=== PATIENT | male | born 1990 | race Caucasian/White ===

== ENCOUNTER 2017-12-23 11:33 | Inpatient (IN) | payer SELFPAY ==
[~2017-12-23] VITALS: Ht 182.9 cm; Wt 84.2 kg
[2017-12-23] MEDS ORDERED: [UNRECOGNIZED DRUG - REMARK] OTHER SCH (17:00)
[2017-12-23 17:05] VITALS: BP 151/92; PULSE 82; RESP 18; TEMP 98.2; O2SAT 82
[2017-12-23] MEDS ORDERED: diphenhydrAMINE HCL 50 MG CAP - HS PRN PO (19:00)
[2017-12-23] MEDS ORDERED: diphenhydrAMINE HCL 50 MG/ML VIAL IM PRN (19:00)
[2017-12-23] MEDS ORDERED: MAGNESIUM HYDROXIDE SUSP 30 ML CUP PO PRN (19:00)
[2017-12-23] MEDS ORDERED: diphenhydrAMINE HCL 50 MG CAP PO PRN (19:00)
[2017-12-23] MEDS ORDERED: diphenhydrAMINE HCL 50 MG/ML VIAL - HS PRN IM (19:00)
[2017-12-23] MEDS ORDERED: hydrOXYzine HCL 50 MG TAB PO PRN (19:00)
[2017-12-23] MEDS ORDERED: ACETAMINOPHEN 325 MG TAB PO PRN (19:00)
[2017-12-23] MEDS ORDERED: ALUMINUM/MAGNESIUM/SIMETH 30 ML CUP PO PRN (19:00)
[2017-12-23] MEDS ORDERED: REMOVE OLD NICOTINE PATCH T-DERMAL SCH (21:00)
[2017-12-24 05:57] VITALS: BP 126/85; PULSE 77; RESP 17; TEMP 98.2; O2SAT 96
[2017-12-24] MEDS ORDERED: NICOTINE 21 MG/24 HR PATCH T-DERMAL SCH (09:00)
--- NOTE | 2017-12-24 12:19 | HHI.HP ---
Provisional Diagnosis Admission Date Dec 23, 2017 at 16:30 [place]. 1. Adjustment disorder with anxiety, resolved 2. Cannabis use [place] II. Deferred Certification of Person's Competence To Provide Express and Informed Consent I have personally examined Jaxson Farmer , a person being served at [facility] on, Dec 24, 2017 12:19. Express and informed consent means consent voluntarily given in writing, by a competent person, after sufficient explanation and disclosure of the subject matter involved to enable the person to make a knowing and willful decision without any element of force, fraud, deceit, duress, or other form of constraint or coercion. This person is 18 years of age or older, is not now known to be incompetent to consent to treatment with a guardian advocate, and does not have a health care surrogate or proxy currently making medical treatment decisions. I have found this person to be one of the following: [x] Competent to provide express and informed consent, as defined above, for voluntary admission to this facility and is competent to provide express and informed consent for treatment. He/she has the consistent capacity to make well reasoned, willful, and knowing decisions concerning his or her medical or mental health treatment. The person fully and consistently understands the purpose of the admission for examination/placement and is fully capable of personally exercising all rights [place] Incompetent to provide express and informed consent to voluntary admission, and this is incompetent to provide express and informed consent to treatment. The person must be transferred to involuntary status and a petition for a guardian advocate filed with the Circuit Court. [] Refusing to provide express and informed consent to voluntary admission but is competent to provide express and informed consent for treatment. The person must be discharged or transferred to involuntary status. Form shall be completed within 24 hours of a person's arrival at the receiving facility and filed in the clinical record of each person: 1. Admitted on a voluntary basis 2. Permitted to provide express and informed consent to his/her own treatment 3. Allowed to transfer from involuntary to voluntary status 4. Prior to permitting a person to consent to his or her own treatment after having been previously found incompetent to consent to treatment. History of Present Illness Capacity: Has Capacity Psych Chief Complaint: "It was just a bad day." HPI Mr. Farmer is a 27 year-old male with a reported history of depression and anxiety who presents in transfer from [facility] under a Telles Act. Documentation from outside hospital reviewed. Patient presented to outside hospital complaining of anxiety and depression in the setting of divorce. He was placed under the Telles act at outside hospital and sent to [facility]. Reviewing our electronic medical record, it appears this is patient's first visit to [facility]. Patient seen and examined with nurse. Chart reviewed. Case discussed with nursing staff. Per nurse, patient's behavior on the inpatient unit has been euthymic with no evidence of any suicidality or homicidality. The patient is noted to interact appropriately with peers. On my examination today, the patient insists that he was just having a bad day. He had recently discovered that his , from whom he is , was in a relationship with another man and "I just needed someone to talk to." He denies that he was suicidal at any point and denies any suicidal or homicidal ideation, intent or plan now and contracts for safety. He says that he wants to live for his dog, his friends and his family. He says that he was just acutely distressed and anxious because of the information he had learned about his , but now he feels much better and would like to be discharged from the hospital. I can elicit no depressive or hypomanic/manic symptoms. He denies any audiovisual hallucinations. I can elicit no delusional material. There is no evidence of impairment in reality construction. The remainder of the psychiatric ROS is negative. The patient has no acute physical complaints. With the patient's permission, I have obtained collateral information from his mother Sandy Shah at [phone]. Mother has absolutely no concerns about the patient being a risk of harm to himself or others. She is comfortable with the patient being discharged home today. Regarding the decision to Telles act the patient, Ms. Shah says "it was silly. He is perfectly fine." Mother is aware of patient's child psychiatric history but notes that he has had no issues in adulthood. Past psychiatric history: Patient reports that he has a history of depression and anxiety but has managed off of medications without issue for over 4 years. He is not under the care of a psychiatrist. He reports that he was psychiatrically admitted as a child and had one overdose as a child but denies any psychiatric admissions or suicide attempts in adulthood. Family history: Patient denies a family history of serious mental illness or suicide. Chemical dependency history: Patient admits to occasional use of cannabis. He drinks the occasional beer. He denies any other substance use. Social history: The patient relates that he has an extensive support system of family and friends. He is in the process of his of 5 years. He notes that the relationship has always been toxic but that the decision to separate is relatively recent. He has no children. He was attending law school but is presently working at [employer]. He denies any history. Denies any legal history. Denies any access to guns or firearms. No particular zoroastrian or spiritual beliefs. He denies any history of trauma. Review of Systems Except as stated in HPI: all other systems reviewed are Neg Past Family Social History Coded Allergies: No Known Allergies (Verified Allergy, Unknown, 12/23/17) Past Medical History Patient denies any past medical history Current Medications Medications (Trade) Dose Ordered Sig/Binh Route Start Time Stop Time Status Last Admin ([facility] Nursing Information) ENTER PATIENT'S HT/WT ... Q30M OTHER 12/23/17 17:00 (Atarax) 50 mg Q6H PRN PO 12/23/17 19:00 (Benadryl) 50 mg Q6H PRN PO 12/23/17 19:00 (Benadryl Inj) 50 mg Q6H PRN IM 12/23/17 19:00 (Benadryl) 50 mg HS PRN PO 12/23/17 19:00 (Benadryl Inj) 50 mg HS PRN IM 12/23/17 19:00 (Tylenol) 650 mg Q4H PRN PO 12/23/17 19:00 (Milk Of Magnesia Liq) 30 ml DAILY PRN PO 12/23/17 19:00 (Mag-Al Plus Susp Liq) 30 ml Q6H PRN PO 12/23/17 19:00 (Habitrol 21 Mg Patch.24 Hr) 1 patch DAILY T-DERMAL 12/24/17 09:00 Miscellaneous Information 1 HS T-DERMAL 12/23/17 21:00 Patient's Strengths (min. 2) Attending to basic needs. Verbally fluent. Physical Exam Physical examination completed by ED provider at outside hospital. On my examination today, the patient appears to be in no acute physical distress. No motor abnormalities noted. Labs and vitals reviewed: Vital Signs Vital Signs Date Time Temp Pulse Resp B/P (MAP) Pulse Ox O2 Delivery O2 Flow Rate FiO2 12/24/17 05:57 98.2 77 17 126/85 (99) 96 Lab Results Laboratories from outside hospital reviewed: CBC reveals mild leukocytosis without signs or symptoms of infection. BMP reveals mild hyperglycemia in a nonfasting sample. Tylenol, salicylate and alcohol level are all negative. Urine toxicology is positive only for cannabinoids. Mental Status Examination Appearance: Appropriate Consciousness: Alert Orientation: x4 Motor Activity: Normal gait Speech: Unremarkable Language: Adequate Fund of Knowledge: Adequate Attention and Concentration: Adequate Memory: Unremarkable (Grossly intact on clinical exam) Mood: Appropriate Affect: Appropriate, Euthymic Thought Process & Associations: Intact, Logical, Goal directed, Linear Thought Content: Appropriate Hallucination Type: None Delusion Type: None Suicidal Ideation: No Suicidal Plan: No Suicidal Intention: No Homicidal Ideation: No Homicidal Plan: No Homicidal Intention: No Insight: Adequate Judgment: Adequate Assessment & Plan Problem List: (1) Adjustment disorder with anxiety ICD Codes: F43.22 - Adjustment disorder with anxiety Assessment & Plan 27-year-old male with psychiatric history as detailed above who presents in transfer from outside hospital under a Telles act. It is difficult to understand why the decision was taken to Telles act this patient. He is not suicidal or homicidal. There is no evidence of severely unstable mental illness as defined under the Telles act. There is no evidence of self-care deficit. The patient says he was just going into the outside hospital to try to get someone to talk to. I have obtained reassuring collateral information from his mother. Patient clearly does not meet the Telles act criteria. I have lifted the Telles act. The patient is requesting discharge from the inpatient psychiatric unit today, and I have no basis or reason to retain him over his objection. Patient will be discharged home today in stable condition with psychiatric referral as provided by the counselor. Patient is agreeable to outpatient counseling. Patient is also to follow up with primary care. I have counseled the patient regarding warning signs for need to return to the psychiatric emergency room as part of a general safety plan. I have provided no prescriptions on discharge. This note serves also as my discharge summary. Amos Valladares MD Dec 24, 2017 12:19
== END 2017-12-24 17:35 | disposition home or self-care (01) | DRG 882 ==
LOC: H260 16:30
PROVIDERS: ADMIT Psychiatry & Neurology Psychiatry; ATTEND Psychiatry & Neurology Psychiatry
DX: F43.22 Adjustment disorder with anxiety (principal); F12.90 Cannabis use, unspecified, uncomplicated